=== PATIENT | male | born 1960 ===

== ENCOUNTER 2018-06-15 17:19 | Emergency (ER) | payer OTHER ==
--- NOTE | 2018-06-15 18:25 | ED PDOC ---
Upper Extremity Pain/Injury Time Seen by Provider: 06/15/18 17:46 Chief Complaint (Nursing): Upper Extremity Problem/Injury Chief Complaint (Provider): Left Wrist Pain History Per: Patient History/Exam Limitations: no limitations Onset/Duration Of Symptoms: Days Current Symptoms Are (Timing): Still Present Quality: "Pain" Additional Complaint(s): 57 year old right hand dominant male presents to the ED for an evaluation of left wrist pain. Patient slipped and fell at work bearing weight on his left hand. He was referred to the ED by PMD after having outpatient imagining done. He was provided a disc and Meloxicam. PMD: Tripp Gay Past Medical History Reviewed: Historical Data, Nursing Documentation, Vital Signs Vital Signs: Last Vital Signs Temp 98.9 F 06/15/18 17:38 Pulse 74 06/15/18 17:38 Resp 16 06/15/18 17:38 BP 136/80 06/15/18 17:38 Pulse Ox 98 06/15/18 17:38 - Medical History PMH: No Chronic Diseases - Surgical History Surgical History: No Surg Hx - Family History Family History: States: Unknown Family Hx - Home Medications Home Medications: Ambulatory Orders Medication Instructions Recorded Ibuprofen [Motrin] 600 mg PO Q6 #20 tab 06/15/18 oxyCODONE/Acetaminophen [Percocet 1 ea PO Q6 PRN #5 tab 06/15/18 5/325 mg Tab] oxyCODONE/Acetaminophen [Percocet 1 ea PO Q6 PRN #5 tab 06/15/18 5/325 mg Tab] - Allergies Allergies/Adverse Reactions: Allergies Allergy/AdvReac Type Severity Reaction Status Date / Time No Known Allergies Allergy Verified 06/15/18 17:38 Review of Systems ROS Statement: Except As Marked, All Systems Reviewed And Found Negative Musculoskeletal: Positive for: Hand Pain (left ) Psych: Negative for: Suicidal ideation (homicidal ideation ) Physical Exam - Reviewed Nursing Documentation Reviewed: Yes Vital Signs Reviewed: Yes - Physical Exam Appears: Positive for: Well, Non-toxic, No Acute Distress Head Exam: Positive for: ATRAUMATIC, NORMAL INSPECTION, NORMOCEPHALIC Skin: Positive for: Normal Color, Warm, Dry Eye Exam: Positive for: Normal appearance Pulses-Radial (L): 2+ Extremity: Positive for: Normal ROM, Tenderness (left wrist tenderness over radial aspect and mild edema), Other (distal sensation intact and no ecchymosis ) - ECG O2 Sat by Pulse Oximetry: 98 (RA) Pulse Ox Interpretation: Normal Medical Decision Making Medical Decision Making: Time: 1747 Initial Impression: wrist injury r/o fracture Initial Plan: --Motrin 600mg --Wrist, Left 3 Views [RAD] --Reevaluation XR: (+) distal radius fxr, as read by ROWDY Pt placed in orthoglass sugar tong splint by ROWDY s/p splintting, Pt able to move fingers. distal sensation intact Give ortho follow up Scribe Attestation: Documented by Bola Martínez, acting as a scribe for Rosanna Smith PA-C. Provider Scribe Attestation: All medical record entries made by the Scribe were at my direction and personally dictated by me. I have reviewed the chart and agree that the record accurately reflects my personal performance of the history, physical exam, medical decision making, and the department course for this patient. I have also personally directed, reviewed, and agree with the discharge instructions and disposition. Disposition - Clinical Impression Clinical Impression: Wrist fracture - Patient ED Disposition Is Patient to be Admitted: No - Disposition Referrals: Stiven Garay III, MD [Staff Provider] - Disposition: Routine/Home Disposition Time: 21:48 Condition: STABLE Prescriptions: Ibuprofen [Motrin] 600 mg PO Q6 #20 tab oxyCODONE/Acetaminophen [Percocet 5/325 mg Tab] 1 ea PO Q6 PRN #5 tab PRN Reason: Pain, Severe (8-10) oxyCODONE/Acetaminophen [Percocet 5/325 mg Tab] 1 ea PO Q6 PRN #5 tab PRN Reason: Pain, Severe (8-10) Instructions: Wrist Fracture (DC) Forms: [employer] ([place]), [facility] ED School/Work Excuse
[2018-06-15 20:25] VITALS: BP 128/78; PULSE 78; RESP 18; TEMP 98
[2018-06-15 20:43] VITALS: O2SAT 98
--- NOTE | 2018-06-16 12:11 | RAD ---
PROCEDURE: Left Wrist Radiographs. HISTORY: pain s/p fall COMPARISON: None available. FINDINGS: BONES: Comminuted fracture of the distal radius with intra-articular extension. JOINTS: No dislocation. SOFT TISSUES: Soft tissue swelling. No evidence of radiopaque foreign body OTHER FINDINGS: None. IMPRESSION: Soft tissue swelling. Comminuted fracture of the distal radius with intra-articular extension.
== END 2018-06-15 20:24 | disposition home or self-care (01) ==
LOC: H.ER 17:19
DX: S52.572A Other intraarticular fracture of lower end of left radius, initial encounter for closed fracture (principal); W19.XXXA Unspecified fall, initial encounter; Y99.0 Civilian activity done for income or pay